=== PATIENT | male | born 1995 | race Caucasian/White ===

== ENCOUNTER 2018-05-28 16:55 | Emergency (ER) | payer MEDICAID, OTHER ==
[2018-05-28] MEDS ORDERED: IBUP-1984 PO (17:04)
[2018-05-28] MEDS ORDERED: PENI500T2 PO (17:04)
[2018-05-28 17:09] VITALS: BP 122/78
== END 2018-05-28 17:13 | disposition home or self-care (01) ==
LOC: ER 16:55
DX: K08.89 Other specified disorders of teeth and supporting structures (principal); Z88.8 Allergy status to other drugs, medicaments and biological substances; Z79.899 Other long term (current) drug therapy
CPT/HCPCS: 99283